=== PATIENT | female | born 1945 | race Caucasian/White ===

== ENCOUNTER 2023-10-18 08:22 | Day surgery (SDC) | payer MEDICARE, OTHER, SELFPAY ==
--- NOTE | 2023-10-18 | PATH_ITS ---
[facility] Accession Number: [id number] No. of containers..01 Tissue . 01 Material submitted: . colon - DESCENDING POLYP . 01 Diagnosis: DESCENDING POLYP: Tubular adenoma. STO 10/25/2023 1502 Local . 01 Electronically signed: . Amrit Diaz MD, Pathologist NPI- [id number] . 01 Gross description: . DESCENDING POLYP: Received in formalin is 1 fragment(s) of garnett, soft tissue measuring 0.2 x 0.2 x 0.2 cm submitted entirely in 1 cassette(s) /ABDULKAIDR 10/25/2023 1502 Local . 01 Pathologist provided ICD-10: D12.4 . 01 CPT . 650014 Specimen Comment: A courtesy copy of this report has been sent to [phone] Performed at: [address] [id number] MD Amrit Diaz MD Phone: [phone]
[2023-10-18 10:33] VITALS: BP 154/72; PULSE 51; RESP 18; TEMP 36.3; O2SAT 99
[2023-10-18] MEDS: LACTATED RINGERS 1,000 ML 42 ML IV (10:43)
--- NOTE | 2023-10-18 11:07 | PM.HP.1 ---
History of Present Illness History of Present Illness Date Patient Seen: 10/18/23 Time Patient Seen: 11:08 Chief complaint: Dx Colonoscopy w/poss bx Narrative: 78-year-old woman personal history of colonic polyps here for screening colonoscopy. Last colonoscopy 2017. No family history of intestinal malignancy. Occasionally has diarrhea associated with dietary sensitivities. [facility] Medical History Breast cancer, left Hernia, inguinal, bilateral Normal colonoscopy Hypothyroid Surgical History Hx of left mastectomy History of total left knee replacement Social History Smoking Status: Never smoker alcohol intake: current Meds Home Medications and Allergies Home Medications Medication Instructions Recorded Confirmed Type peg 3350-sod sulf,wuafa-oew-pjv 1,000 ml PO DIRECTED #2,000 mL 09/19/23 Rx 178.7-7.3-0.5-1.12-0.9 gram oral soln (Suflave) levothyroxine 100 mcg tablet 100 mcg PO DAILY 10/18/23 10/18/23 History Allergies Allergy/AdvReac Type Severity Reaction Status Date / Time cefazolin [CEFAZOLIN] AdvReac Unknown Rash Verified 10/18/23 10:42 clindamycin [CLINDAMYCIN] AdvReac Unknown Rash Verified 10/18/23 10:42 hydrocodone [HYDROCODONE] AdvReac Unknown Nausea Verified 10/18/23 10:42 meloxicam [From MOBIC] AdvReac Unknown Nausea Verified 10/18/23 10:42 oxycodone [OXYCODONE] AdvReac Unknown Nausea Verified 10/18/23 10:42 Exam Vital Signs (past 8 hours): - 10/18/23 10:33 Temperature 97.4 F L Pulse Rate 51 L Respiratory Rate 18 Blood Pressure 154/72 H Pulse Oximetry 99 Oxygen Delivery Method Room Air Oxygen Delivery Method Room Air Narrative Exam Narrative: General adult woman alert oriented no acute distress Chest nonlabored respiration Extremities warm well perfused Assessment & Plan Assessment & Plan narrative: The patient requires colorectal screening and colonoscopy is recommended. Technical details were discussed. Risks, benefits, alternatives explained. Risks including but not limited to myocardial infarction, aspiration, bleeding, pain, missed lesion, incomplete examination, need for further radiographic studies, intestinal injury, and need for major abdominal surgery were discussed. All questions were answered to their satisfaction, and they are in agreement with this plan.
[2023-10-18 11:43] VITALS: BP 103/58; PULSE 58; RESP 22; TEMP 36.3; O2SAT 98
--- NOTE | 2023-10-18 11:46 | P.OP.COLON_ITS ---
Operative Date/Time/Diagnoses Date of procedure: 10/18/23 Time of procedure: 11:46 Pre-op diagnosis: Personal history of colonic polyps Post-op diagnosis: other (Colonic polyp) Procedure & Clinicians Study performed: Screening colonoscopy Same procedure as scheduled: Yes Indications: Colorectal screening Personal history of colonic polyps Surgeon: Bryan Mancera Procedure Notes Procedure in detail: The history and physical was performed/updated and the patient is ASA class is 2. The procedure was discussed in detail with the patient. Potential risks complications including infection, bleeding, missed diagnosis, perforation, need for surgery, and were explained. Their questions were answered and informed consent was obtained. Patient was brought to the procedure room and placed standard monitoring equipment. The patient's vital signs were monitored continuously throughout the entire procedure. Prior to starting time-out was performed. The patient was placed in the left lateral recumbent position. Procedural sedation was administered by anesthesia. Examination began with a thorough inspection of the perianal area there was no evidence of fissures, fistulae, external hemorrhoids or cutaneous malignancy. The colonoscopy scope was then placed into the anal canal and was advanced to the cecum, which was identified by the ileocecal valve, the appendiceal orifice and the confluence of the taenia. The scope was t hen slowly withdrawn examining colon thoroughly in all directions, irrigating it of any residual stool. The scope was retroflexed within the rectum The patient tolerated the procedure well. They will be discharged once criteria are met. The prep was of good/excellent quality. The withdrawl time was 8 minutes. FINDINGS * Descending colon 3 mm polyp removed with biopsy forceps. * Gonzalez diverticulosis Specimen(s): other (Descending colon polyp) Impression: Colonic polyp X1 Diverticulosis Post-procedure Recommendations: High fiber diet Plan for aftercare: Follow up dependent on pathology findings Disposition: same day surgery
[2023-10-18 11:47] VITALS: BP 110/63; PULSE 55; RESP 24; O2SAT 100
[2023-10-18 11:52] VITALS: BP 111/52; PULSE 54; RESP 17; O2SAT 100
[2023-10-18 11:57] VITALS: BP 130/65; PULSE 51; RESP 14; TEMP 36.2; O2SAT 100
== END 2023-10-18 12:05 | disposition home or self-care (01) ==
PROVIDERS: PCP Family Medicine; Referring Provider Surgery; Visit Provider Surgery
PROC: 0DJD8ZZ Inspection of Lower Intestinal Tract, Via Natural or Artificial Opening Endoscopic (ICD-10-PCS; CPT 45378; principal; 2023-10-18 11:00)
DX: Z12.11 Encounter for screening for malignant neoplasm of colon (principal); Z86.010 Personal history of colon polyps; K57.30 Diverticulosis of large intestine without perforation or abscess without bleeding; D12.4 Benign neoplasm of descending colon
CPT/HCPCS: 45380; J2704

== ENCOUNTER → 2023-11-03 10:29 | Outpatient (CLI) | payer MEDICARE, OTHER, SELFPAY ==
--- NOTE | 2023-11-03 10:30 | DI.MRI.S_ITS ---
PROCEDURE: MR KNEE LT WO CON INDICATIONS: PAIN IN LEFT KNEE TECHNIQUE: Noncontrast sagittal PD fast spin echo and T2 fast spin echo with fat saturation, sagittal 3-D FLASH with fat saturation; coronal T1 spin echo and PD fast spin echo with fat saturation, and axial PD fast spin echo with fat saturation through the knee. COMPARISON: [facility], CR, XR KNEE 1 OR 2 VIEWS LEFT, 11/20/2020, 11:06. [facility] [place], CR, XR KNEE 4+ VIEWS LEFT, 09/22/2023, 11:51. FINDINGS: Image quality: Severely limited due to metallic artifacts from knee joint arthroplasty and prosthesis. Menisci: n.a. Cruciate ligaments: n.a. Medial structures: The medial collateral ligament appears intact. The posterior oblique ligament, semimembranosus tendon insertions, oblique popliteal ligament, and meniscocapsular junction appear intact. Visualized portions of the pes anserinus tendons appear normal. No abnormal bursal fluid. Lateral structures: Not well seen. Anterior structures: The quadriceps and patellar tendons appear intact. There is moderate quadriceps tendinitis and mild patellar tendinitis. Patellar alignment is normal. Bones and cartilage: Postsurgical changes related to total knee arthroplasty. Severe metallic artifact partially obscure structures of interest. No displaced fractures. Joint space: There is large knee joint effusion. There is a tiny Gu's cyst. Normal appearing synovial plicae are incidentally noted. IMPRESSION: 1. Severely limited examination because of strong metallic artifacts from the knee joint prosthesis. 2. Moderate quadriceps tendinitis and mild patellar tendinitis. 3. Large knee joint effusion. Dictated by: Nasreen Mancilla M.D. on 11/03/2023 at 12:31 Approved by: Nasreen Mancilla M.D. on 11/03/2023 at 12:36
== END ==
LOC: MRI 10:30
PROVIDERS: PCP Family Medicine; Referring Provider Orthopaedic Surgery; Visit Provider Orthopaedic Surgery
DX: M76.52 Patellar tendinitis, left knee (principal); M25.462 Effusion, left knee; M25.562 Pain in left knee; Z96.652 Presence of left artificial knee joint
CPT/HCPCS: 73721